=== PATIENT | male | born 1975 | race Hispanic/Latino ===

== ENCOUNTER 2018-04-03 00:41 | Emergency (ER) | payer SELFPAY ==
[~2018-04-03 00:41] MED LIST: FLEXERIL10 MG PO; LORTAB 10-325 M1 TAB PO; NAPROXEN500 MG PO; NO MEDS; PAROXETINE20 MG PO; ULTRAM50 MG OR
== END 2018-04-03 00:51 | disposition left against medical advice (07) | DRG 951 ==
LOC: ED 00:41 → LWOBS 00:51 → ED 00:51
DX: Z91.19 Patient's noncompliance with other medical treatment and regimen (principal)

== ENCOUNTER 2020-09-05 17:29 | Emergency (ER) | payer SELFPAY ==
[~2020-09-05] VITALS: Ht 175.3 cm; Wt 89.0 kg
[2020-09-05] MEDS ORDERED: TRAMADOL HCL50 MG PO (19:46)
[2020-09-05] MEDS ORDERED: VOLTAREN75 MG PO (19:46)
[2020-09-05 20:15] VITALS: BP 121/72
== END 2020-09-05 20:15 | disposition home or self-care (01) | DRG 605 ==
LOC: ED 17:29
PROC: 0HQ0XZZ Repair Scalp Skin, External Approach (ICD-10-PCS; principal; 2020-09-05)
DX: S01.01XA Laceration without foreign body of scalp, initial encounter (principal); E11.9 Type 2 diabetes mellitus without complications; M10.9 Gout, unspecified; Y00.XXXA Assault by blunt object, initial encounter; Y92.009 Unspecified place in unspecified non-institutional (private) residence as the place of occurrence of the external cause

== ENCOUNTER 2020-10-01 18:50 | Emergency (ER) | payer BC ==
[~2020-10-01 18:50] MED LIST changes: +TRAMADOL HCL50 MG PO; +VOLTAREN75 MG PO
[2020-10-01] MEDS ORDERED: METFORMIN HCL500 M2 PO (19:25)
[2020-10-01] MEDS ORDERED: ALLOPURINOL100 MG PO (19:25)
[2020-10-01] MEDS ORDERED: PERCOCET 5/325M1 TAB PO (19:47)
[2020-10-01] MEDS ORDERED: MEDDOSEPAK PO (19:47)
[2020-10-01 20:20] VITALS: BP 123/78
== END 2020-10-01 20:20 | disposition home or self-care (01) | DRG 554 ==
LOC: ED 18:50
DX: M10.021 Idiopathic gout, right elbow (principal); E11.9 Type 2 diabetes mellitus without complications; Z79.84 Long term (current) use of oral hypoglycemic drugs

== ENCOUNTER 2021-02-09 14:44 | Emergency (ER) | payer BC ==
[~2021-02-09] VITALS: Ht 175.3 cm; Wt 90.0 kg
[~2021-02-09 14:44] MED LIST changes: +ALLOPURINOL100 MG PO; +MEDDOSEPAK PO; +METFORMIN HCL500 M2 PO; +PERCOCET 5/325M1 TAB PO
[2021-02-09 15:52] LABS: HEMATOCRIT 43.3 % (39.0-50.0); HEMOGLOBIN 14.8 g/dl (14.0-18.0); IMMATURE GRANULOCYTES 0.1 % (0.0-5.0); MEAN CORPUSCULAR HGB 30.8 pG CALC (26.0-32.0); MEAN CORPUSCULAR HGB CONC 34.2 g/dL CAL (32.0-36.0); NEUT# 5.5 thou/uL (1.82-7.42); RED BLOOD COUNT 4.81 mill/uL (4.70-6.10); RED CELL DISTRI WIDTH 12.2 % (11.5-15.5)
[2021-02-09 16:08] LABS: ALKALINE PHOSPHATASE 95 u/l (38-126); AMYLASE 50 u/l (30-110); ANION GAP 9 (6-22 (CALC)); BUN 12 mg/dL (9-20); BUN/CREATININE RATIO 15 (12-20 (CALC)); CARBON DIOXIDE 28 mmol/l (22-30); CHLORIDE 99 mmol/l (95-108); CREATININE 0.8 mg/dL (0.7-1.3); ETHYL ALCOHOL 0 mg/dl (0-30); GFR > 60 ML/MIN (>=60 (CALC)); GFR FOR AFR.AMER. > 60 ML/MIN (>=60 (CALC)); LIPASE 147 u/l (23-300); POTASSIUM 3.8 mmol/l (3.5-5.1); SGOT/AST 16 u/l (17-59); SODIUM 132 mmol/l (137-146)
[2021-02-09 16:10] LABS: ALBUMIN 3.6 g/dL (3.2-5.0); BILIRUBIN, TOTAL 0.6 mg/dL (0.0-1.4); TOTAL PROTEIN 6.7 g/dL (6.3-8.2)
[2021-02-09 16:14] LABS: ACT PARTIAL THROMBO TIME 21.9 SECONDS (20.0-32.5); PROTHROMBIN TIME 10.4 SECONDS (9.0-12.5)
[2021-02-09 16:29] LABS: URINE BILIRUBIN - DIPSTICK NEGATIVE (NEGATIVE); URINE BLOOD DIPSTICK NEGATIVE (NEGATIVE); URINE COLOR YELLOW; URINE GLUCOSE - DIPSTICK >=1000 mg/dL (NEGATIVE); URINE KETONE NEGATIVE (NEGATIVE); URINE LEUK ESTERASE NEGATIVE (NEGATIVE); URINE PROTEIN - DIPSTICK NEGATIVE (NEG-TRACE); URINE UROBILINOGEN - DIPSTICK 0.2 E.U./dL (0.2)
[2021-02-09 16:31] LABS: URINE NITRITE - DIPSTICK NEGATIVE (Negative)
[2021-02-09] MEDS ORDERED: BENADRYL25 M1 PO (17:41)
[2021-02-09 18:07] VITALS: BP 133/82
== END 2021-02-09 18:21 | disposition home or self-care (01) | DRG 607 ==
LOC: ED 14:44
DX: L50.0 Allergic urticaria (principal); E11.65 Type 2 diabetes mellitus with hyperglycemia; F15.10 Other stimulant abuse, uncomplicated; M10.9 Gout, unspecified; Z79.84 Long term (current) use of oral hypoglycemic drugs; Z20.822 Contact with and (suspected) exposure to COVID-19

== ENCOUNTER 2021-09-03 21:39 | Emergency (ER) | payer BC ==
[~2021-09-03] VITALS: Ht 175.3 cm; Wt 85.0 kg
[~2021-09-03 21:39] MED LIST changes: +BENADRYL25 M1 PO
[2021-09-03 21:47] VITALS: BP 128/81
[2021-09-03 22:00] VITALS: BP 129/85
[2021-09-03 22:15] VITALS: BP 122/82
[2021-09-03 22:30] VITALS: BP 121/75
[2021-09-03 22:45] VITALS: BP 122/78
[2021-09-03 22:49] VITALS: BP 122/78
== END 2021-09-03 22:53 | disposition home or self-care (01) | DRG 566 ==
LOC: ED 21:39
DX: M25.461 Effusion, right knee (principal); E11.9 Type 2 diabetes mellitus without complications; M10.9 Gout, unspecified; Z79.84 Long term (current) use of oral hypoglycemic drugs; Z98.890 Other specified postprocedural states

== ENCOUNTER 2022-02-19 14:50 | Emergency (ER) | payer BC ==
[~2022-02-19] VITALS: Ht 175.3 cm; Wt 81.8 kg
[2022-02-19 14:59] VITALS: BP 144/85
[2022-02-19 15:00] VITALS: BP 140/91
[2022-02-19 15:16] VITALS: BP 136/86
[2022-02-19 15:30] VITALS: BP 137/79
[2022-02-19 15:45] VITALS: BP 133/90
[2022-02-19 17:36] VITALS: BP 133/90
[2022-02-19] MEDS ORDERED: CEPHALEXIN500 M1 PO (17:41)
[2022-02-19] MEDS ORDERED: TRAMADOL HYDROC50 M1 PO (17:41)
== END 2022-02-19 17:36 | disposition home or self-care (01) | DRG 605 ==
LOC: ED 14:50
DX: S61.217A Laceration without foreign body of left little finger without damage to nail, initial encounter (principal); S61.215A Laceration without foreign body of left ring finger without damage to nail, initial encounter; W26.8XXA Contact with other sharp object(s), not elsewhere classified, initial encounter

== ENCOUNTER 2022-04-22 09:29 | Emergency (ER) | payer SELFPAY ==
[~2022-04-22 09:29] MED LIST changes: +CEPHALEXIN500 M1 PO; +TRAMADOL HYDROC50 M1 PO
== END 2022-04-22 11:36 | disposition left against medical advice (07) | DRG 556 ==
LOC: ED 09:29 → LWOBS 11:36
DX: M79.605 Pain in left leg (principal); Z53.21 Procedure and treatment not carried out due to patient leaving prior to being seen by health care provider

== ENCOUNTER 2022-06-06 09:39 | Emergency (ER) | payer SELFPAY ==
[~2022-06-06] VITALS: Ht 175.3 cm; Wt 82.0 kg
[2022-06-06 09:58] VITALS: BP 132/83
[2022-06-06 10:00] VITALS: BP 131/83
[2022-06-06 10:30] VITALS: BP 123/75
[2022-06-06 11:00] VITALS: BP 123/85
[2022-06-06 12:56] VITALS: BP 123/85
== END 2022-06-06 12:58 | disposition home or self-care (01) | DRG 607 ==
LOC: ED 09:39
DX: S00.96XA Insect bite (nonvenomous) of unspecified part of head, initial encounter (principal); E11.9 Type 2 diabetes mellitus without complications; M10.9 Gout, unspecified; F17.210 Nicotine dependence, cigarettes, uncomplicated; W57.XXXA Bitten or stung by nonvenomous insect and other nonvenomous arthropods, initial encounter; Z79.84 Long term (current) use of oral hypoglycemic drugs

== ENCOUNTER 2022-11-05 10:16 | Emergency (ER) | payer SELFPAY ==
[~2022-11-05] VITALS: Ht 175.3 cm; Wt 82.0 kg
[2022-11-05] VITALS (13 sets, daily range): BP systolic 115–139; BP diastolic 77–91
[2022-11-05 10:55] LABS: BASO% 0.8 % (0-3); EOS% 1.6 % (0-8); HEMATOCRIT 45.6 % (39.0-50.0); HEMOGLOBIN 15.8 g/dl (14.0-18.0); IMMATURE GRANULOCYTES 0.1 % (0.0-5.0); MEAN CELL VOLUME 89.1 fL CALC (80.0-100.0); MEAN CORPUSCULAR HGB 30.9 pG CALC (26.0-32.0); MEAN CORPUSCULAR HGB CONC 34.6 g/dL CAL (32.0-36.0); MONO% 6.1 % (2-13); NEUT# 4.71 thou/uL (1.82-7.42); NEUT% 63.4 % (42-76); PLATELET COUNT 259 thou/uL (130-400); RED BLOOD COUNT 5.12 mill/uL (4.70-6.10)
[2022-11-05 11:02] LABS: ALKALINE PHOSPHATASE 97 u/l (38-126); BILIRUBIN, TOTAL 0.6 mg/dL (0.2-1.3); BUN 11 mg/dL (9-20); BUN/CREATININE RATIO 18 (12-20 (CALC)); CHLORIDE 98 mmol/l (95-108); CREATININE 0.6 mg/dL (0.7-1.3); GFR FOR AFR.AMER. > 60 ML/MIN (>=60 (CALC)); GFR OTHER RACES > 60 ML/MIN (>=60 (CALC)); POTASSIUM 4.2 mmol/l (3.5-5.1); SGOT/AST 24 u/l (17-59); SODIUM 130 mmol/l (137-146); TOTAL PROTEIN 6.9 g/dL (6.3-8.2)
[2022-11-05 11:56] LABS: ANION GAP 14 (6-22 (CALC)); CARBON DIOXIDE 22 mmol/l (22-30)
[2022-11-05 13:04] LABS: URINE BILIRUBIN - DIPSTICK Negative (NEGATIVE); URINE BLOOD DIPSTICK Negative (NEGATIVE); URINE GLUCOSE - DIPSTICK 500 mg/dL (NEGATIVE); URINE KETONE Negative (NEGATIVE); URINE LEUK ESTERASE Negative (NEGATIVE); URINE NITRITE - DIPSTICK Negative (Negative); URINE PROTEIN - DIPSTICK Negative (NEG-TRACE); URINE UROBILINOGEN - DIPSTICK 0.2 E.U./dL (0.2)
[2022-11-05 13:06] LABS: URINE COLOR Yellow
[2022-11-05] MEDS ORDERED: LEVEMIR100 UNIT SC (13:17)
== END 2022-11-05 13:43 | disposition home or self-care (01) | DRG 639 ==
LOC: ED 10:16
PROVIDERS: Family Medicine
DX: E11.65 Type 2 diabetes mellitus with hyperglycemia (principal); Z79.84 Long term (current) use of oral hypoglycemic drugs; R51.9 Headache, unspecified; R42 Dizziness and giddiness

== ENCOUNTER 2024-02-19 15:32 | Emergency (ER) | payer SELFPAY ==
[~2024-02-19] VITALS: Ht 175.3 cm; Wt 74.0 kg
[~2024-02-19 15:32] MED LIST changes: +ALLOPURINOL300 MG PO; +ATORVASTATIN CA40 MG PO; +LEVEMIR100 UNIT SC; +METFORMIN HCL1000 MG PO
[2024-02-19 15:58] VITALS: BP 128/87
[2024-02-19] MEDS ORDERED: ONDANSETRON HCl 4 MG/2 ML SDV IV ONE (16:10)
[2024-02-19] MEDS ORDERED: MORPHINE SULFATE 4 MG/ML VIAL IV ONE (16:10)
[2024-02-19 16:18] VITALS: BP 138/82
[2024-02-19 16:19] LABS: BASO% 0.7 % (0-3); EOS% 12.1 % (0-8); HEMATOCRIT 50.2 % (39.0-50.0); HEMOGLOBIN 17.2 g/dl (14.0-18.0); IMMATURE GRANULOCYTES 0.1 % (0.0-5.0); LYMPH% 17.8 % (15-41); MEAN CELL VOLUME 90.6 fL CALC (80.0-100.0); MEAN CORPUSCULAR HGB CONC 34.3 g/dL CAL (32.0-36.0); MONO% 7.3 % (2-13); NEUT# 8.73 thou/uL (1.82-7.42); RED BLOOD COUNT 5.54 mill/uL (4.70-6.10); RED CELL DISTRI WIDTH 13.5 % (11.5-15.5)
[2024-02-19 16:33] LABS: ALBUMIN 4.7 g/dL (3.2-5.0); ALKALINE PHOSPHATASE 72 u/l (38-126); ANION GAP 15 (6-22 (CALC)); BILIRUBIN, TOTAL 0.7 mg/dL (0.2-1.3); BUN 12 mg/dL (9-20); BUN/CREATININE RATIO 16 (12-20 (CALC)); CARBON DIOXIDE 27 mmol/l (22-30); CHLORIDE 103 mmol/l (95-108); CREATININE 0.8 mg/dL (0.7-1.3); ESTIMATED GFR 109 ML/MIN (>=90 (CALC)); POTASSIUM 3.9 mmol/l (3.5-5.1); SODIUM 141 mmol/l (137-146); TOTAL PROTEIN 8.3 g/dL (6.3-8.2)
[2024-02-19 16:34] LABS: SGOT/AST 59 u/l (17-59)
[2024-02-19 17:29] LABS: URINE BLOOD DIPSTICK Negative (NEGATIVE); URINE COLOR Yellow; URINE GLUCOSE - DIPSTICK Negative (NEGATIVE); URINE KETONE Trace mg/dL (NEGATIVE); URINE LEUK ESTERASE Negative (NEGATIVE); URINE NITRITE - DIPSTICK Negative (Negative); URINE PH 8.5 (4.5-8.0); URINE PROTEIN - DIPSTICK 30 mg/dL (NEG-TRACE); URINE UROBILINOGEN - DIPSTICK 0.2 E.U./dL (0.2)
[2024-02-19 17:35] LABS: URINE AMORPH SEDIMENT MODERATE hpf (NONE-FER); URINE WBC 0-2 WBC/hpf (0-5)
[2024-02-19] MEDS ORDERED: DRAMAMINE25 M1 PO (18:12)
[2024-02-19] MEDS ORDERED: ZOFRAN4 MG/TAB PO (18:12)
[2024-02-19 18:46] VITALS: BP 146/90
== END 2024-02-19 18:56 | disposition home or self-care (01) | DRG 149 ==
LOC: ED 15:32
PROVIDERS: Family Medicine
DX: R42 Dizziness and giddiness (principal); E11.9 Type 2 diabetes mellitus without complications; Z79.4 Long term (current) use of insulin; Z79.84 Long term (current) use of oral hypoglycemic drugs
CPT/HCPCS: J2405; Q9967